=== PATIENT | female | born 1980 | race Caucasian/White ===

== ENCOUNTER 2023-10-20 06:16 | Day surgery (SDC) | payer BC, SELFPAY ==
[2023-10-20] VITALS (10 sets, daily range): BP systolic 107–161; BP diastolic 52–92; BMI 41.1
[2023-10-20] MEDS: NORMOSOL-R 1000 IV (09:05)
[2023-10-20] MEDS: ZOFRAN 4 MG IV (14:03)
== END 2023-10-20 15:30 | disposition home or self-care (01) ==
LOC: SDS 06:16
PROVIDERS: ATTENDING PHYSICIAN Otolaryngology; FAMILY PHYSICIAN Nurse Practitioner Adult Health
DX: D36.7 Benign neoplasm of other specified sites (principal); R59.0 Localized enlarged lymph nodes
CPT/HCPCS: 38510; 88305; 88341; 88342

== ENCOUNTER → 2023-12-23 11:19 | Outpatient (REF) | payer BC, SELFPAY | LOC: RAD 11:19 | PROVIDERS: ATTENDING PHYSICIAN Otolaryngology; FAMILY PHYSICIAN Nurse Practitioner Adult Health | DX: D11.0 Benign neoplasm of parotid gland (principal); R59.0 Localized enlarged lymph nodes | CPT/HCPCS: 76536 ==

== ENCOUNTER 2023-12-29 06:17 | Day surgery (SDC) | payer BC, SELFPAY ==
--- NOTE | 2023-12-21 10:54 | CM ---
Patient is scheduled for a parotidectomy on 12/29/23. Spoke with patient prior to surgery via telephone to complete case management assessment and assess for discharge planning needs. Patient reports that she lives with her two children, ages 11 and
13, in a two story home. There are three steps to enter and a flight of steps to the second floor. She currently functions independently. She has no DME. She has had VN services in the past. She has a prescription plan and uses [facility] in [place].
PCP is Jordyn Colin
Discussed discharge plans. Patient plans to return home at discharge. She states that she will have support from her children when she goes home. She has no discharge planning concerns at this time.
[2023-12-29] VITALS (19 sets, daily range): BP systolic 10–152; BP diastolic 45–86; BMI 39.4
[2023-12-29] MEDS: NORMOSOL-R 1000 IV (07:31)
[2023-12-29] MEDS: PERCOCET 5/325 1 TABLET PO ×2 (14:46→20:38)
--- NOTE | 2023-12-29 14:56 | PTCARENOTE ---
Pt arrived to 2S in bed. Full assessment completed. R neck DSG C/D/I, drain site C/D/I, drain with small amount of serosanguineous output noted. Pt educated on HOB restriction 30-40 degrees and CLD, pt verbalizes understanding. Bed locked and in the
lowest position, safety maintained. Oriented to room and call [place].
[2023-12-30 03:12] VITALS: BP 137/66
[2023-12-30 07:05] VITALS: BP 104/62
--- NOTE | 2023-12-30 09:41 | CM ---
Addendum entered by Violet Delgado 12/30/23 09:54:
[facility]
Original Note:
IA completed.
Lives in a 2 story apartment with daughter & son.
3 steps to get into the apartment & 12 steps to the full bath.
Powder room on 1st floor.
PLOF: Independent.
Plan: Discharge home when stable. No needs.
[2023-12-30 11:43] VITALS: BP 137/74
--- NOTE | 2023-12-30 14:43 | W.PN.ENT ---
Today's Communication
-
seen at bedside
Impression / Plan
-
doing well 1 day after right parotidectomy
CHIKIS removed and dressing replaced
avoid strenuous activity and turning neck forcefully
follow up with Dr. Burk as scheduled
Subjective Data
-
doing well 1 day after right parotidectomy
Objective Data
-
Vital Signs
Temp Pulse Resp BP Pulse Ox
98.6 F 92 18 137/74 99
12/30/23 11:43 12/30/23 11:43 12/30/23 11:43 12/30/23 11:43 12/30/23 11:43
Intake & Output
12/29/23 12/30/23 12/31/23
06:59 06:59 06:59
Intake:
Oral fluids 1859 / 1859
IV fluids (Total) 300 / 300
Normosol 300 / 300
Output:
Drain Output (Total)
Right Neck [place]Oneil
Other:
Number of unmeasured voidings 1
Number of approximated MODERATE 2
amounts of urine
Number of approximated LARGE 2
amounts of urine
CHIKIS drain in place, minimal discharge
Physical Exam
-
Chest: Clear
Respiratory: Clear
Data Reviewed
-
Radiology Results: Report Reviewed
Micro Results: Report Reviewed
== END 2023-12-30 15:28 | disposition home or self-care (01) ==
LOC: SDS 06:17
PROVIDERS: ATTENDING PHYSICIAN Otolaryngology
DX: D11.0 Benign neoplasm of parotid gland (principal); K76.0 Fatty (change of) liver, not elsewhere classified; Z87.891 Personal history of nicotine dependence
CPT/HCPCS: 42415; 88307